=== PATIENT | female | born 1945 | race Caucasian/White ===

== ENCOUNTER 2016-11-22 07:56 | Inpatient (IN) | payer MEDICARE, BC ==
[~2016-11-22 07:56] MED LIST: MORPHINE SULFATE 15 MG TABLET.SA PO PRN; RINGER'S SOLUTION,LACTATED 1,000 ML IV PRN; ceFAZolin SODIUM 1 GM VIAL IV PRN
[2016-11-22] MEDS ORDERED: TRANEXAMIC ACID 1,000 MG in NORMAL SALINE 100 ML IV ONE (08:00)
[2016-11-22] MEDS ORDERED: MORPHINE SULFATE 15 MG TABLET.SA PO SCH (08:00)
[2016-11-22] MEDS ORDERED: ceFAZolin SODIUM 1 GM VIAL IV ONE (08:00)
[2016-11-22] MEDS ORDERED: FLU VACC QS2017-18(6MOS UP)/PF 60 MCG/0.5 ML SYRINGE IM ONE (08:27)
--- NOTE | 2016-11-22 09:55 | PREOP NOTE ---
Preoperative Progress Note - Preoperative Changes Changes to Preop Condition?: No Changes
[2016-11-22] MEDS ORDERED: RINGER'S SOLUTION,LACTATED 1,000 ML IV ONE ×3 (10:55→12:18)
[2016-11-22] MEDS: TRANEXAMIC ACID 1,000 MG in NORMAL SALINE 100 ML IV PRN ×2 (12:10→12:15)
[2016-11-22] MEDS: ROPIVACAINE HCL/PF 100 MG, KETOROLAC TROMETHAMINE 30 MG, EPINEPHrine 0.2 MG in NORMAL S... IJ PRN ×2 (12:10→12:14)
[2016-11-22] MEDS ORDERED: ZOLPIDEM TARTRATE 5 MG TABLET PO PRN (12:48)
[2016-11-22] MEDS ORDERED: ONDANSETRON HCL/PF 2 MG/ML VIAL IV PRN (12:48)
[2016-11-22] MEDS ORDERED: PROMETHAZINE HCL 5 MG in DEXTROSE 5 % IN WATER 50 ML IV PRN ×2 (12:48)
[2016-11-22] MEDS ORDERED: MAG HYDROX/ALUMINUM HYD/SIMETH 30 ML UDC PO PRN (12:48)
[2016-11-22] MEDS ORDERED: MAGNESIUM HYDROXIDE 30 ML UDC PO PRN (12:48)
[2016-11-22] MEDS ORDERED: ALPRAZolam 0.5 MG TABLET PO PRN (12:50)
--- NOTE | 2016-11-22 12:53 | OR ---
Operative Report - Dictated Report Narrative: Date: 11/22/2016 Preoperative diagnosis: Right Knee degenerative joint disease. Postoperative diagnosis: Right Knee degenerative joint disease. Procedure: Right Total knee arthroplasty. Surgeon: Gustavo Lin M.D. Home Based Assistant: Mason Cantu PA-C Anesthesia: Spinal with regional block and local periarticular joint injection. Complications: None Specimens: Bone for disposal. Estimated blood loss: Minimal. Tourniquet time: 74 Minutes at 350 millimeters of mercury. Retained implants: Depuy Attune size 5 narrow right lugged cemented posterior stabilized femoral component. Size 5 fixed-bearing cemented tibial platform. 5 by 6 millimeter posterior stabilized cross-linked tibial insert. 35 millimeter medialized patella button. Indications: Mrs. Alcantar is a 71-year-old female who has had long-standing right knee pain and arthrosis. This patient was followed in my clinic for period of time with significant complaints of right knee pain consistent with arthritic changes. She had failed conservative measures including, but not limited to, activity modification, passage of time, medications, and other conservative measures. Patient wished to proceed with surgical treatment. The risks, benefits, and alternatives were discussed in clinic. The risks of , blood clots, bleeding, infection, nerve/tendon blood vessel/ injury, malposition of components, intraoperative fracture, postoperative limited range of motion, persistent pain, failure of components, and need for additional procedures. Patient wished to proceed consent was obtained after answering all questions. Procedure: After marking the correct extremity on the floor, the patient was taken to the operating room. A timeout was performed. IV antibiotics consisting of Ancef were administered prior to the procedure. A regional followed by spinal anesthetic was induced by anesthesia, per my request, on the operative table with all bony prominences well-padded. Ramírez catheter was placed, and a bump was placed under the operative side buttock. SCDs and ZEENAT hose were utilized on the nonoperative leg. A well-padded tourniquet was applied to the operative thigh. The operative leg was then pre-scrubbed with alcohol prepped, and draped in a standard sterile fashion. After exsanguinating the extremity with an Esmarch bandage, the tourniquet was inflated. After marking out the anterior knee for standard incision centered over the patella, the skin was incised and dissected down to the joint retinaculum. The joint retinaculum was marked out as well as the horizontal axis of the patella, and a standard medial parapatellar arthrotomy was then made. The most proximal aspect of the quadriceps tendon and the patella tendon insertion were protected from release. A partial synovectomy was performed as well as a resection of the infrapatellar fat pad. The distal femoral fat pad proximal to the trochlea was also resected using cautery. The soft tissues were elevated off the medial aspect of the proximal tibia using a Silva elevator ensuring that we did not transect the medial collateral ligament. Upon initial evaluation range of motion was approximately 0 degrees to 120 degrees of flexion. There were signs of advanced arthrosis in the medial, lateral, and patellofemoral joint spaces. There were large marginal osteophytes which were removed with a rongeur. The knee was hyperflexed and the patella was tucked laterally. Protecting the surrounding soft tissues with Homans, an entry drill was placed down the femoral canal using Whitesides line for guidance into the entry point. The intramedullary femoral alignment ivana was utilized in order to cut the distal femur in 5 degrees of valgus resecting 10 millimeters of bone. Next the distal femur was sized to a size 5. A posterior referencing guide was utilized to place the distal femoral cutting block in 3 degrees of external rotation. This was pinned into place. The rotation was confirmed both visually and based on anatomic landmarks. The 4 in 1 cutting jig of the appropriate size was utilized in order to make all bony cuts. The angle wing was used to ensure no notching. Retractors were utilized in order to protect surrounding soft tissues. This cut did not result in any excessive notching. We then cut the box centered over the distal femur. This allowed for resection of the anterior and posterior cruciate ligaments. I then turned my attention to the preparation of the tibia. Using an extra medullary tibial alignment ivana, 4 millimeters of bone was resected off the medial articular surface. This was made perpendicular to the mechanical axis of the joint with the alignment ivana centered over the ankle mortise. The alignment ivana was checked and was noted to be parallel to the mechanical axis, centered over the medial one third of the tibial tubercle, paralleling the anterior surface of the tibia. We then turned our attention to the remaining meniscus and soft tissues. These were removed while protecting the surrounding ligaments and soft tissues. The marginal osteophytes off the anterior, posterior, medial, lateral aspects of the femur and tibia were removed. The tibia was sized out to a size 5. Next the tibia was drilled and punched in an externally rotated position. Next the trial femur and a series of tibial inserts were utilized in order to allow for full extension and maximal flexion. It was found that a 6 millimeter insert gave the best range of motion and stability at multiple flexion points as well as at full extension there was less than 2 mm of gapping both medially and laterally. There is minimal anterior translation with the knee at 90 degrees of flexion and no signs of being able to dislocate the knee. The patella was then prepared. The initial thickness was 20 millimeters. This was reamed down to 11 millimeters parallel to the anterior surface of the patella. It was sized out to a size 35 medialized patella button. This was then drilled and trialed. Without any medial restraint the patella tracked appropriately and did not sublux or dislocate. At this point, it was felt these were the appropriate sized implants, and all trials were removed. The standard periarticular joint injection consisting of ropivacaine, Toradol, and epinephrine were injected into the periarticular joint tissues. The bony surfaces were thoroughly irrigated with a pulsatile- suction saline irrigation device. A bone plug from the prior resected anterior chamfer cut was placed into the drill hole at the distal femur. The bony surfaces were then dried in preparation for placement of the implants. The cement was vacuum mixed per the fire loss prevention engineer's instructions. The cement was placed on the dry bony surfaces and posterior aspect of the implants. The implants were impacted into place, removing all extruded cement. At this point anesthesia administered tranexamic acid per protocol intravenously. The knee was placed in extension with axial loading with the trial insert while the cement cured. Once the cement cured, all remaining extruded cement was removed. The knee was placed through a range of motion with the trial insert to ensure appropriate range of motion and stability. Final range of motion was approximately 0 to 120 degrees. The knee was again thoroughly irrigated with pulsatile saline lavage. The final polyethylene insert was then impacted into place ensuring no retained soft tissues. The remaining periarticular joint injection was injected. A medium Hemovac drain was placed exiting superior laterally. The knee was then placed over a triangle and the arthrotomy was closed with interrupted #1 Vicryl after thoroughly irrigating the joint. The deep and subcutaneous tissues were closed with interrupted 0 and 3-0 Vicryl respectively. Skin was closed with a running subcutaneous 3-0 Monocryl and Prineo Dermabond dressing. 4 x 4's, Sof-Rol, and a full leg Tigre wrap were applied. All sponge, needle, blade, and instrument counts were correct prior to closing the wounds. Postoperative condition: The patient was awoken and transferred to the postanesthesia care unit in stable condition. Plan is to be admitted to the inpatient medical/surgical floor postoperatively for 24 hours of IV antibiotics , physical therapy, occupational therapy, and medical comanagement. Patient will be weightbearing as tolerated with range of motion as tolerated. DVT prophylaxis will be with SCDs, ZEENAT hose, and pharmacological anticoagulation. Anticipated hospital stay is approximately 2-4 days.
[2016-11-22] MEDS ORDERED: ALENDRONATE SODIUM 70 MG TABLET PO SCH (13:00)
[2016-11-22] MEDS ORDERED: TEMAZEPAM 15 MG CAPSULE PO PRN (13:14)
[2016-11-22] MEDS: DEXTROSE 5%-LACTATED RINGERS 1,000 ML IV PRN ×2 (13:40→23:01)
[2016-11-22] MEDS: CALCIUM CARBONATE/VITAMIN D3 1 TAB TABLET PO SCH ×2 (13:41→16:46)
[2016-11-22] MEDS: GABAPENTIN 100 MG CAPSULE PO SCH ×3 (13:42→21:08)
[2016-11-22] MEDS: KETOROLAC TROMETHAMINE 15 MG/ML VIAL IV SCH ×2 (13:42→19:45)
[2016-11-22] MEDS: SUCRALFATE 1 G TABLET PO SCH ×3 (13:42→21:06)
[2016-11-22] MEDS: ceFAZolin SODIUM 1 GM in DEXTROSE 5 % IN WATER 100 ML IV SCH ×4 (13:49→21:10)
[2016-11-22] MEDS: MORPHINE SULFATE 15 MG TABLET.SA PO SCH (21:05)
[2016-11-22] MEDS: CLONIDINE HCL 0.1 MG TABLET PO SCH (21:07)
[2016-11-22] MEDS: OXYBUTYNIN CHLORIDE 5 MG TABLET PO SCH (21:07)
[2016-11-22] MEDS: MAGNESIUM OXIDE 400 MG TABLET PO SCH (21:08)
[2016-11-22] MEDS: PANTOPRAZOLE SODIUM 20 MG TABLET.DR PO SCH (21:09)
[2016-11-22] MEDS: NORTRIPTYLINE HCL 10 MG CAPSULE PO SCH (21:09)
[2016-11-22] MEDS: SENNOSIDES/DOCUSATE SODIUM 1 TAB TABLET PO SCH (21:10)
[2016-11-22] MEDS: rOPINIRole HCL 1 MG TABLET PO SCH (21:10)
[2016-11-23] MEDS: KETOROLAC TROMETHAMINE 15 MG/ML VIAL IV SCH ×4 (00:28→19:02)
[2016-11-23] MEDS: ceFAZolin SODIUM 1 GM in DEXTROSE 5 % IN WATER 100 ML IV SCH ×2 (03:12)
[2016-11-23] MEDS: HYDROcodone/ACETAMINOPHEN 1 EACH TABLET PO PRN (03:19)
[2016-11-23 05:55] LABS: Hematocrit 32.4 % (37.0-47.0); Hemoglobin 10.5 gm/dL (12.5-16.0); Mean Corpuscular Hemoglobin 30.8 pg (27-31); Mean Corpuscular Hgb Conc 32.4 g/dl (32-36); Mean Platelet Volume 9.7 fl (6.0-9.5); Platelet Count 189 K/mm3 (150-450); Red Blood Count 3.41 M/mm3 (4.2-5.4); Red Cell Distribution Width 12.4 % (11.5-14.0); White Blood Count 4.6 K/mm3 (4.0-10.5)
[2016-11-23 06:06] LABS: Anion Gap 10.5 mmol/L (6.8-13.8); BUN/Creatinine Ratio 14.6 (9.0-21.6); Calcium * 8.1 mg/dL (7.9-10.9); Carbon Dioxide 26.6 mmol/L (24-32.6); Estimated Creat Clear 46.5; Potassium 4.1 mmol/L (3.4-4.6)
[2016-11-23] MEDS: PANTOPRAZOLE SODIUM 20 MG TABLET.DR PO SCH ×2 (06:27→20:14)
[2016-11-23] MEDS: diphenhydrAMINE HCL 50 MG/ML VIAL IV PRN (06:32)
--- NOTE | 2016-11-23 08:16 | PN ---
Subjective - Date and Time Seen Date: 11/23/16 Time: 08:10 Subjective Narrative: Has had no pain up till now, reports leg still weak from block when she got up to chair this am, no nausea, no chest pain, no SOB. No complaints. Objective Objective Narrative: Up in chair. Bandages C/D/I. N/V intact RLE. Calf supple. Drain intact. - Vitals Vitals: Last Vital Signs Temp 36.7 C 11/23/16 07:06 Pulse 66 11/23/16 07:06 Resp 18 11/23/16 07:06 BP 96/65 11/23/16 07:06 Pulse Ox 95 11/23/16 07:06 - Abnormal Lab Findings Abnormal Lab Findings: Abnormal Lab Results 11/23/16 11/23/16 Range/Units 05:30 05:30 RBC 3.41 L (4.2-5.4) M/mm3 Hgb 10.5 L (12.5-16.0) gm/dL Hct 32.4 L (37.0-47.0) % MPV 9.7 H (6.0-9.5) fl Chloride 108 H (97-106) mmol/L Random Glucose 126 H (70-110) mg/dL - Exam Constitutional: Present: Alert, Oriented x3, Cooperative, No distress Cauti Physician Documentation - Urinary Catheter Management Urethral (Ramírez) Date of Insertion: 11/22/16 Time of Insertion: 11:10 Date of Removal: 11/23/16 Time of Removal: 06:30 Assessment/Plan - Problems/Diagnosis (1) Acute blood loss anemia Problem: Acute Narrative: asymptomatic, recheck labs in am (2) Hypertension Problem: Chronic (3) GERD (gastroesophageal reflux disease) Problem: Chronic (4) Depression Problem: Chronic (5) Obesity Problem: Chronic (6) Status post total right knee replacement Problem: Acute Narrative: PT, anticoagulation, pain control, pull drain today. Will need wheeled walker for 4-6 weeks postop for ambulation. (7) DDD (degenerative disc disease), lumbar Problem: Chronic
[2016-11-23] MEDS: CALCIUM CARBONATE/VITAMIN D3 1 TAB TABLET PO SCH ×3 (08:53→17:43)
[2016-11-23] MEDS: SUCRALFATE 1 G TABLET PO SCH ×4 (08:53→20:14)
[2016-11-23] MEDS: (Cranberry Fruit Extract [Cranberry] 500 MG) PO SCH (08:54)
[2016-11-23] MEDS: MAGNESIUM OXIDE 400 MG TABLET PO SCH ×2 (08:54→20:15)
[2016-11-23] MEDS: CITALOPRAM HYDROBROMIDE 20 MG TABLET PO SCH (08:54)
[2016-11-23] MEDS: OXYBUTYNIN CHLORIDE 5 MG TABLET PO SCH ×2 (08:54→20:14)
[2016-11-23] MEDS: FERROUS SULFATE 325 MG TABLET PO SCH (08:54)
[2016-11-23] MEDS: MULTIVITAMINS 1 CAP CAPSULE PO SCH (08:55)
[2016-11-23] MEDS: GABAPENTIN 100 MG CAPSULE PO SCH ×4 (08:55→20:14)
[2016-11-23] MEDS: ASCORBIC ACID 500 MG TABLET PO SCH (08:55)
[2016-11-23] MEDS: MORPHINE SULFATE 15 MG TABLET.SA PO SCH ×2 (08:59→20:14)
[2016-11-23] MEDS: CLONIDINE HCL 0.1 MG TABLET PO SCH ×2 (09:01→20:15)
--- NOTE | 2016-11-23 09:01 | PN ---
Subjective - Date and Time Seen Date: 11/23/16 Time: 07:20 Subjective Narrative: Weak knee, buckled. Otherwise feels fine. Objective - Review of Systems Generalized/Overall Review: Reports: Weakness EENTM: Reports: No Symptoms Reported Respiratory: Reports: No Symptoms Reported Cardiac: Reports: No Symptoms Reported Abdominal: Reports: No Symptoms Reported Genitourinary Symptoms: Reports: No Symptoms Reported Musculoskeletal Complaints: Reports: No Symptoms Reported Neurological: Reports: No Symptoms Reported Skin: Reports: No Symptoms Reported Endocrine: Reports: No Symptoms Reported Misc: All systems neg except as marked - Vitals Vitals: Last Vital Signs Selected Entries 11/23/16 07:06 Temperature 36.7 C Temperature Oral Source Pulse Rate 66 Respiratory 18 Rate Blood Pressure 96/65 Blood Pressure Supine Position O2 Sat by Pulse 95 Oximetry Oxygen Delivery Room Air Method - Abnormal Lab Findings Abnormal Lab Findings: Abnormal Lab Results 11/23/16 11/23/16 Range/Units 05:30 05:30 RBC 3.41 L (4.2-5.4) M/mm3 Hgb 10.5 L (12.5-16.0) gm/dL Hct 32.4 L (37.0-47.0) % MPV 9.7 H (6.0-9.5) fl Chloride 108 H (97-106) mmol/L Random Glucose 126 H (70-110) mg/dL - Exam Constitutional: Present: Alert, Oriented x3, Cooperative, Well developed, No distress, Obese ENT Exam: Present: normal ENT inspection, hearing grossly normal Neck: Present: normal inspection Respiratory: Present: lungs clear, no respiratory distress Cardiovascular/Chest: Present: regular rate, rhythm, no murmur Abdomen: Present: Normal bowel sounds, soft, nontender, nondistended, no rebound tenderness, obese Extremity: Present: normal inspection. Absent: pedal edema Skin Exam: Present: normal color, warm/dry, no cyanosis Neurologic: Present: alert, oriented x 3 Appearance: Present: appropriate appearance, appropriate insight, neat, no memory impairment Eye contact: Present: cooperative, good eye contact, normal speech Thoughts: Present: normal thought pattern Cauti Physician Documentation - Urinary Catheter Management Urethral (Ramírez) Date of Insertion: 11/22/16 Time of Insertion: 11:10 Date of Removal: 11/23/16 Time of Removal: 06:30 Assessment/Plan Plan Narrative: Follow post op protocol - Problems/Diagnosis (1) Status post total right knee replacement Problem: Acute (2) GERD (gastroesophageal reflux disease) Problem: Chronic (3) Hypertension Problem: Chronic (4) Obesity Problem: Chronic
[2016-11-23] MEDS: ENOXAPARIN SODIUM 40 MG/0.4 ML SYRG SC SCH (11:30)
[2016-11-23] MEDS: NORTRIPTYLINE HCL 10 MG CAPSULE PO SCH (20:14)
[2016-11-23] MEDS: rOPINIRole HCL 1 MG TABLET PO SCH (20:14)
[2016-11-23] MEDS: SENNOSIDES/DOCUSATE SODIUM 1 TAB TABLET PO SCH (20:15)
[2016-11-24] MEDS: KETOROLAC TROMETHAMINE 15 MG/ML VIAL IV SCH ×2 (01:58→07:11)
[2016-11-24] MEDS: ACETAMINOPHEN 500 MG TABLET PO PRN ×2 (02:07→17:06)
[2016-11-24 06:08] LABS: Hematocrit 32.5 % (37.0-47.0); Hemoglobin 10.4 gm/dL (12.5-16.0); Mean Corpuscular Hemoglobin 30.4 pg (27-31); Mean Platelet Volume 9.9 fl (6.0-9.5); Platelet Count 191 K/mm3 (150-450); Red Blood Count 3.42 M/mm3 (4.2-5.4); Red Cell Distribution Width 12.4 % (11.5-14.0); White Blood Count 7.5 K/mm3 (4.0-10.5)
[2016-11-24 06:20] LABS: Anion Gap 10.2 mmol/L (6.8-13.8); BUN/Creatinine Ratio 14.9 (9.0-21.6); Calcium * 8.5 mg/dL (7.9-10.9); Carbon Dioxide 28.7 mmol/L (24-32.6); Potassium 3.9 mmol/L (3.4-4.6)
[2016-11-24] MEDS: PANTOPRAZOLE SODIUM 20 MG TABLET.DR PO SCH ×2 (07:11→20:34)
[2016-11-24] MEDS: CLONIDINE HCL 0.1 MG TABLET PO SCH ×2 (08:17→20:34)
[2016-11-24] MEDS: CALCIUM CARBONATE/VITAMIN D3 1 TAB TABLET PO SCH ×3 (08:17→17:07)
[2016-11-24] MEDS: SUCRALFATE 1 G TABLET PO SCH ×4 (08:17→20:23)
[2016-11-24] MEDS: MAGNESIUM OXIDE 400 MG TABLET PO SCH ×2 (08:18→20:34)
[2016-11-24] MEDS: OXYBUTYNIN CHLORIDE 5 MG TABLET PO SCH ×2 (08:18→20:34)
[2016-11-24] MEDS: CITALOPRAM HYDROBROMIDE 20 MG TABLET PO SCH (08:18)
[2016-11-24] MEDS: FERROUS SULFATE 325 MG TABLET PO SCH (08:18)
[2016-11-24] MEDS: ASCORBIC ACID 500 MG TABLET PO SCH (08:18)
[2016-11-24] MEDS: GABAPENTIN 100 MG CAPSULE PO SCH ×4 (08:19→20:34)
[2016-11-24] MEDS: MULTIVITAMINS 1 CAP CAPSULE PO SCH (08:19)
[2016-11-24] MEDS: (Cranberry Fruit Extract [Cranberry] 500 MG) PO SCH (08:20)
[2016-11-24] MEDS: MORPHINE SULFATE 15 MG TABLET.SA PO SCH ×2 (08:24→20:23)
[2016-11-24] MEDS: ENOXAPARIN SODIUM 40 MG/0.4 ML SYRG SC SCH (11:06)
--- NOTE | 2016-11-24 12:52 | PN ---
Subjective - Date and Time Seen Date: 11/24/16 Time: 07:15 Subjective Narrative: Still worried that her knee is weak and buckled. Concerned about her at home. Otherwise feels fine. Objective - Review of Systems Generalized/Overall Review: Reports: Weakness EENTM: Reports: No Symptoms Reported Respiratory: Reports: No Symptoms Reported Cardiac: Reports: No Symptoms Reported Abdominal: Reports: No Symptoms Reported Genitourinary Symptoms: Reports: No Symptoms Reported Musculoskeletal Complaints: Reports: Other Neurological: Reports: No Symptoms Reported Skin: Reports: No Symptoms Reported Endocrine: Reports: No Symptoms Reported Misc: All systems neg except as marked - Vitals Vitals: Last Vital Signs Selected Entries 11/24/16 11/24/16 02:16 03:22 Temperature 38.2 C H 37.5 C Temperature Oral Temporal Artery Source Scan Pulse Rate 91 Pulse Rhythm Regular Respiratory 18 Rate Respiratory Normal Depth Respiratory Normal Effort Non-Labored Blood Pressure 134/70 Blood Pressure Supine Position O2 Sat by Pulse 95 Oximetry Oxygen Delivery Room Air Method - Abnormal Lab Findings Abnormal Lab Findings: Abnormal Lab Results 11/24/16 11/24/16 Range/Units 05:22 05:22 RBC 3.42 L (4.2-5.4) M/mm3 Hgb 10.4 L (12.5-16.0) gm/dL Hct 32.5 L (37.0-47.0) % MPV 9.9 H (6.0-9.5) fl Random Glucose 122 H (70-110) mg/dL - Exam Constitutional: Present: Alert, Oriented x3, Cooperative, Well developed, No distress, Obese ENT Exam: Present: normal ENT inspection Neck: Present: normal inspection Respiratory: Present: lungs clear, no respiratory distress Cardiovascular/Chest: Present: regular rate, rhythm, no murmur Abdomen: Present: Normal bowel sounds, soft, nontender, nondistended, no rebound tenderness, no hepatospenomegaly, obese Extremity: Present: normal range of motion, non-tender, normal inspection, no pedal edema Skin Exam: Present: normal color, warm/dry, no cyanosis Neurologic: Present: alert, oriented x 3 Appearance: Present: appropriate appearance, appropriate insight, neat, no memory impairment Eye contact: Present: cooperative, good eye contact, normal speech Thoughts: Present: normal thought pattern Cauti Physician Documentation - Urinary Catheter Management Urethral (Ramírez) Date of Insertion: 11/22/16 Time of Insertion: 11:10 Date of Removal: 11/23/16 Time of Removal: 06:30 Assessment/Plan Plan Narrative: Continue with protocol - Problems/Diagnosis (1) Status post total right knee replacement Problem: Acute (2) GERD (gastroesophageal reflux disease) Problem: Chronic (3) Hypertension Problem: Chronic (4) Obesity Problem: Chronic
--- NOTE | 2016-11-24 12:58 | PN ---
Subjective - Date and Time Seen Date: 11/24/16 Time: 12:57 Subjective Narrative: Subjective: Reports minimal pain. Was able to walk in the room with therapy. Pain is well-controlled. Voiding without any complications. Tolerating by mouth intake. Denies any nausea or vomiting. Denies calf pain. Slept well. Physical exam: Alert and oriented to person, place and time Right lower Extremity: Palpable dorsalis pedis pulse. Sensation grossly intact to light touch. Dressings clean and dry. Able to flex and extend ankle and toes. No excessive drainage. Calf and thigh are soft and nontender. Assessment: Postop day 2 status post right total knee arthroplasty. Plan: Continue with physical and occupational therapy weightbearing as tolerated. Continue with anticoagulation. Pain control with goal to rely on oral medications. Continue bowel regimen. Will need 6 weeks with walker or assitive device to protect joint while ambulating during the recovery process. Discharge planning. She is making some progress with therapy now the block is worn off and the goal is to discharge home tomorrow Objective - Vitals Vitals: Last Vital Signs Temp 36.8 C 11/24/16 11:04 Pulse 73 11/24/16 11:04 Resp 20 11/24/16 11:04 BP 117/62 11/24/16 11:04 Pulse Ox 94 11/24/16 11:04 - Abnormal Lab Findings Abnormal Lab Findings: Abnormal Lab Results 11/24/16 11/24/16 Range/Units 05:22 05:22 RBC 3.42 L (4.2-5.4) M/mm3 Hgb 10.4 L (12.5-16.0) gm/dL Hct 32.5 L (37.0-47.0) % MPV 9.9 H (6.0-9.5) fl Random Glucose 122 H (70-110) mg/dL Cauti Physician Documentation - Urinary Catheter Management Urethral (Ramírez) Date of Insertion: 11/22/16 Time of Insertion: 11:10 Date of Removal: 11/23/16 Time of Removal: 06:30 Assessment/Plan - Problems/Diagnosis (1) Acute blood loss anemia Problem: Acute (2) Status post total right knee replacement Problem: Acute (3) DDD (degenerative disc disease), lumbar Problem: Chronic (4) Depression Problem: Chronic (5) GERD (gastroesophageal reflux disease) Problem: Chronic (6) Hypertension Problem: Chronic (7) Obesity Problem: Chronic Qualifiers: Body mass index: BMI 39.0-39.9
[2016-11-24] MEDS: SENNOSIDES/DOCUSATE SODIUM 1 TAB TABLET PO SCH (20:32)
[2016-11-24] MEDS: NORTRIPTYLINE HCL 10 MG CAPSULE PO SCH (20:33)
[2016-11-24] MEDS: rOPINIRole HCL 1 MG TABLET PO SCH (20:35)
[2016-11-25] MEDS: HYDROcodone/ACETAMINOPHEN 1 EACH TABLET PO PRN ×2 (02:05→07:26)
[2016-11-25] MEDS: diphenhydrAMINE HCL 50 MG/ML VIAL IV PRN (03:45)
[2016-11-25] MEDS: PANTOPRAZOLE SODIUM 20 MG TABLET.DR PO SCH (07:26)
--- NOTE | 2016-11-25 07:53 | DS ---
(1) Acute blood loss anemia Problem: Acute (2) Status post total right knee replacement Problem: Acute (3) DDD (degenerative disc disease), lumbar Problem: Chronic (4) Depression Problem: Chronic (5) GERD (gastroesophageal reflux disease) Problem: Chronic (6) Hypertension Problem: Chronic (7) Obesity Problem: Chronic Qualifiers: Body mass index: BMI 39.0-39.9 Description of Stay: Mrs. Alcantar was admitted to the floor after undergoing right total knee arthroplasty. Tolerated this well. Was admitted to the floor postoperatively for 24 hours of IV antibiotics, pain control, medical comanagement, and occupational and physical therapy. OT and PT were consulted to assist with activities of daily living and ambulation. Was made weightbearing as tolerated with range of motion as tolerated. Pain was initially controlled with IV regimen. This was transitioned to oral once tolerating a by mouth intake. Was resumed on home diet and medications. Had a Ramírez catheter inserted and the operating room which was discontinued on postoperative day 1. A drain was placed intraoperatively into the knee which was discontinued on postoperative day 1. Lovenox SCD and ZEENAT hose were utilized for DVT prophylaxis. Vital signs remained stable to the hospital course. Serial labs were obtained which showed a final hemoglobin of 10.4 grams. BMP was reviewed and was stable. Physical examination throughout the hospital course showed an extremity that had sensation that was intact to light touch, palpable pulses, a benign wound, motor intact to the toes, ankle, and knee. Knee range of motion was approximately 0 degrees to 60 degrees. Once an oral pain regimen was tolerated and physical therapy goals were met, it was felt that they were stable for discharge to home. Instructions: Continue with weightbearing as tolerated and range of motion as tolerated. It is okay to shower and get the wound wet as long as there is no drainage from the wound. Do not bathe or soak the wound. If there is any drainage from the wound keep the wound clean and dry and cover with dry gauze and tape. Change every 2-3 days as needed if there is any drainage. Cover wound while showering if there is any drainage. Continue with physical therapy. Resume home diet. Report any fever over 101.5 Fahrenheit, uncontrolled pain, increased drainage, foul odor of drainage, new or increased calf pain or shortness of breath, or any other significant complaints. A 325mg dialy aspirin will be started after finishing anticoagulation if not allergic. Continue with ZEENAT hose on the operative extremity until instructed otherwise. No driving until instructed otherwise. Follow up in approximately 10-14 days. Procedures Performed: see notes below List Procedures: Right total knee arthroplasty Discharge Disposition: Home self care Disposition: Home self-care Condition: Good Discharge Activity: Activity as tolerated, Weight bearing Discharge Diet: General/regular food Long-Term Therapy: Physicial Therapy Referrals: Hamilton Morales MD [Primary Care Provider] - Additional Patient Instructions (free text): Follow-up in the office with Dr. Lin on 12/07/16@10:45am. [facility] at discharge new. Please fax orders and face to face upon discharge. Call report. Prescriptions (Any new or edited meds): Enoxaparin Sodium [Lovenox] 40 mg SC Q24H #7 disp.syrin HYDROcodone/ACETAMINOPHEN [[place] 5-325] 2 each PO Q4H PRN #90 tablet PRN Reason: Moderate Pain Morphine Sulfate [Ms Contin] 15 mg PO Q12H #20 tablet.sa Complete Home Medications List: Complete Home Medication List: ALPRAZolam [Xanax] 0.5 mg PO TID PRN 09/18/14 Ascorbic Acid [Vitamin C] 500 mg PO DAILY 09/18/14 Ferrous Sulfate [Iron] 325 mg PO DAILY 09/18/14 Multivitamins [Multivitamin Suman] 1 cap PO DAILY 09/18/14 Omeprazole [Prilosec] 20 mg PO BID 09/18/14 Oxybutynin Chloride [Ditropan] 5 mg PO BID 09/18/14 Gabapentin 100 mg PO QID 06/07/15 Magnesium 250 mg PO BID 06/07/15 Temazepam [Restoril] 30 mg PO HS PRN 06/07/15 Acetaminophen [Tylenol] 325 - 650 mg PO Q4H PRN 11/11/16 Alendronate Sodium [Fosamax] 70 mg PO Q7D 11/11/16 Calcium Carbonate/Vitamin D3 [Calcium 600-Vit D3 400 Tablet] 1 each PO TID 11/11 Citalopram Hydrobromide [Celexa] 40 mg PO DAILY 11/11/16 Clonidine HCl [Catapres] 0.1 mg PO BID 11/11/16 Cranberry Fruit Extract [Cranberry] 500 mg PO DAILY 11/11/16 Menthol [Biofreeze] 1 appl TP Q4H PRN 11/11/16 Nortriptyline HCl [Pamelor] 10 mg PO HS 11/11/16 Sucralfate [Carafate] 1 gm PO QID 11/11/16 rOPINIRole HCL [Requip] 1 mg PO HS 11/11/16 Enoxaparin Sodium [Lovenox] 40 mg SC Q24H #7 disp.syrin 11/25/16 HYDROcodone/ACETAMINOPHEN [[place] 5-325] 2 each PO Q4H PRN #90 tablet 11/25/16 Morphine Sulfate [Ms Contin] 15 mg PO Q12H #20 tablet.sa 11/25/16 Sennosides/Docusate Sodium [Senokot-S] 2 tab PO HS tablet 11/25/16 Amb Orders for Discharge: PT Evaluation and Treatment Facility: [facility], Location: Rehabilitation Services
[2016-11-25 08:13] VITALS: BP 117/69
[2016-11-25] MEDS: CALCIUM CARBONATE/VITAMIN D3 1 TAB TABLET PO SCH (08:25)
[2016-11-25] MEDS: SUCRALFATE 1 G TABLET PO SCH (08:25)
[2016-11-25] MEDS: FERROUS SULFATE 325 MG TABLET PO SCH (08:25)
[2016-11-25] MEDS: OXYBUTYNIN CHLORIDE 5 MG TABLET PO SCH (08:26)
[2016-11-25] MEDS: MAGNESIUM OXIDE 400 MG TABLET PO SCH (08:27)
[2016-11-25] MEDS: GABAPENTIN 100 MG CAPSULE PO SCH (08:27)
[2016-11-25] MEDS: CITALOPRAM HYDROBROMIDE 20 MG TABLET PO SCH (08:29)
[2016-11-25] MEDS: ASCORBIC ACID 500 MG TABLET PO SCH (08:29)
[2016-11-25] MEDS: MULTIVITAMINS 1 CAP CAPSULE PO SCH (08:29)
[2016-11-25] MEDS: CLONIDINE HCL 0.1 MG TABLET PO SCH (08:30)
[2016-11-25] MEDS: (Cranberry Fruit Extract [Cranberry] 500 MG) PO SCH (08:31)
[2016-11-25] MEDS: MORPHINE SULFATE 15 MG TABLET.SA PO SCH (08:32)
--- NOTE | 2016-11-25 10:01 | PN ---
Subjective - Date and Time Seen Date: 11/25/16 Time: 07:20 Subjective Narrative: Better today. Eager to get back home to her . Objective - Review of Systems Generalized/Overall Review: Reports: No Symptoms Reported EENTM: Reports: No Symptoms Reported Respiratory: Reports: No Symptoms Reported Cardiac: Reports: No Symptoms Reported Abdominal: Reports: No Symptoms Reported Genitourinary Symptoms: Reports: No Symptoms Reported Musculoskeletal Complaints: Reports: Other - less weak on her leg. Neurological: Reports: No Symptoms Reported Skin: Reports: No Symptoms Reported Endocrine: Reports: No Symptoms Reported Misc: All systems neg except as marked - Vitals Vitals: Last Vital Signs Selected Entries 11/25/16 03:00 Temperature 36.0 C L Temperature Oral Source Pulse Rate 85 Respiratory 18 Rate Blood Pressure 136/64 Blood Pressure Supine Position O2 Sat by Pulse 94 Oximetry Oxygen Delivery Room Air Method - Exam Constitutional: Present: Alert, Oriented x3, Cooperative, Well developed, No distress, Obese ENT Exam: Present: normal ENT inspection, hearing grossly normal Neck: Present: normal inspection Respiratory: Present: normal breath sounds, no respiratory distress Cardiovascular/Chest: Present: regular rate, rhythm, no murmur Abdomen: Present: Normal bowel sounds, soft, nontender, nondistended, no rebound tenderness, no hepatospenomegaly, no masses, obese Extremity: Present: normal inspection, no pedal edema Skin Exam: Present: normal color, warm/dry, no cyanosis Neurologic: Present: alert, oriented x 3 Appearance: Present: appropriate appearance, appropriate insight, neat, no memory impairment Eye contact: Present: cooperative, good eye contact, normal speech Thoughts: Present: normal thought pattern Cauti Physician Documentation - Urinary Catheter Management Urethral (Ramírez) Date of Insertion: 11/22/16 Time of Insertion: 11:10 Date of Removal: 11/23/16 Time of Removal: 06:30 Assessment/Plan Plan Narrative: Satisfactory course. Home today. - Problems/Diagnosis (1) Status post total right knee replacement Problem: Acute (2) GERD (gastroesophageal reflux disease) Problem: Chronic (3) Hypertension Problem: Chronic (4) Obesity Problem: Chronic Qualifiers: Body mass index: BMI 39.0-39.9
[2016-11-25] MEDS: ENOXAPARIN SODIUM 40 MG/0.4 ML SYRG SC SCH ×2 (10:42→11:27)
[2016-11-29] MEDS ORDERED: ALENDRONATE SODIUM 70 MG TABLET PO SCH (06:00)
== END 2016-11-25 11:10 | disposition home health service (06) | DRG 470 ==
LOC: MS 07:56
PROVIDERS: ADMIT Orthopaedic Surgery; ATTEND Orthopaedic Surgery
PROC: 0SRC0J9 Replacement of Right Knee Joint with Synthetic Substitute, Cemented, Open Approach (ICD-10-PCS; principal; 2016-11-22 11:30)
DX: M17.11 Unilateral primary osteoarthritis, right knee (principal); D62 Acute posthemorrhagic anemia; D51.9 Vitamin B12 deficiency anemia, unspecified; K21.9 Gastro-esophageal reflux disease without esophagitis; N39.46 Mixed incontinence; I10 Essential (primary) hypertension; G47.00 Insomnia, unspecified; Z23 Encounter for immunization
CPT/HCPCS: 27447; 36415; 73560; 80048; 85027; 97110; 97116; 97161; 97165; 97530; G0008